=== PATIENT | female | born 1960 | race Caucasian/White ===

== ENCOUNTER 2017-01-30 12:39 | Emergency (ER) | payer BC ==
[2017-01-30] MEDS ORDERED: methylPREDNISolone 125 MG* 2 ML VIAL IM ONE (13:26)
--- NOTE | 2017-02-14 08:42 | UC ---
Dina Valdez Thomas, scribed for Sue Canada DO on 01/30/17 at 1327 . Allergic Reaction HPI - HPI Summary HPI Summary: The pt is a 56 y/o F presenting to [facility] c/o hives to her left forearm that began today at 11:40. She also has minor tingling to her lips. Before the allergic reaction, she was eating lunch and eating foods that she normally eats. Pt denies using new soaps, lotions detergents, and skin care products. 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 Pt denies dizziness, lightheadedness, confusion, throat swelling, near -syncope, CP, SOB, N/V, abd pain, diarrhea, and cramping. - History of Current Complaint Chief Complaint: UCAllergicReaction Stated Complaint: ALLERGIC REACTION/HIVES Time Seen by Provider: 01/30/17 13:14 Hx Obtained From: Patient Onset/Duration: Lasting Minutes - today at 14:40, Still Present Severity Currently: Mild Pain Intensity: 0 Pain Scale Used: 0-10 Numeric Aggravating Factor(s): Nothing Alleviating Factor(s): Other - Benadryl Associated Signs And Symptoms: Negative: Abdominal Pain, Chest Pain, Difficulty Breathing, Hoarseness, Lightheadedness, Nausea, Throat Tightening, Vomiting, Other: - dizziness, confusion, near-syncope, diarrhea, cramping - Allergies/Home Medications Allergies/Adverse Reactions: Allergies Allergy/AdvReac Type Severity Reaction Status Date / Time No Known Allergies Allergy Verified 01/30/17 13:08 Home Medications: Home Medications Metoprolol Tartrate TAB* [Lopressor TAB*] 100 mg PO BID 01/30/17 [History Confirmed 01/30/17] Multiple Vitamins W/ Minerals [Multivitamin Adults] 1 tab PO DAILY 01/30/17 [ History Confirmed 01/30/17] PMH/Surg Hx/FS Hx/Imm Hx Previously Healthy: No Cardiovascular History: Cardiac Disease Other Cardiovascular History: [place] Respiratory History: Asthma - Surgical History Surgical History: Yes Surgery Procedure, Year, and Place: 4 C-SECTIONS, CARDIAC BYPASS, CARDIAC STENTS X3 AT [facility] 05/21/11 (PROMUS ELEMENT PLUS STENTS) , TONSILS A TEENAGER - Family History Known Family History: Positive: Cardiac Disease, Hypertension, Diabetes Family History: CAD - Social History Alcohol Use: None Substance Use Type: None Smoking Status (MU): Former Smoker Type: Cigarettes Have You Smoked in the Last Year: Yes Household Exposure Type: Cigarettes - Immunization History Most Recent Influenza Vaccination: 02/07 Most Recent Tetanus Shot: up to date Most Recent Pneumonia Vaccination: never had Review of Systems Skin: Other - Hives to left forearm ENT: Other - Tingling to lips Is Patient Immunocompromised?: No All Other Systems Reviewed And Are Negative: Yes Physical Exam Triage Information Reviewed: Yes Appearance: Well-Appearing, No Pain Distress, Well-Nourished Vital Signs: Initial Vital Signs Temp 97.9 F 01/30/17 13:04 Vital Signs Reviewed: Yes Eyes: Positive: Conjunctiva Clear. Negative: Discharge ENT: Positive: TMs normal, Other - There is no obvious swelling of the lips and tongue.. Negative: Tonsillar swelling, Tonsillar exudate, Trismus, Muffled voice Neck exam: Normal Neck: Positive: Supple Respiratory: Positive: Lungs clear, Normal breath sounds, No respiratory distress, No accessory muscle use Cardiovascular: Positive: RRR, No Murmur Abdomen Description: Positive: Nontender, Soft Bowel Sounds: Positive: Present Musculoskeletal Exam: Normal Neurological: Positive: Alert, Muscle Tone Normal Psychological Exam: Normal Psychological: Positive: Age Appropriate Behavior Skin Exam: Normal Skin: Positive: Other - Warm, dry, normal color. There is a urticarial rash 15 cm x 8 cm on the left forearm. Allergic Reaction Course/Dx - Course Course Of Treatment: Medications reviewed this visit. - Differential Dx/Diagnosis Provider Diagnoses: allergic reaction Discharge - Discharge Plan Condition: Stable Disposition: HOME Prescriptions: Cetirizine* [ZyrTEC 10 MG TAB*] 10 mg PO DAILY #7 tab predniSONE TAB* [Deltasone TAB*] 40 mg PO DAILY #8 tab Patient Education Materials: Cetirizine (By mouth), Urticaria (ED), General Allergic Reaction (ED) Referrals: Aletha Borrego MD [Primary Care Provider] - Additional Instructions: CORTICOSTEROID MEDICATION: You have been given a medicine of the cortisone class. This medication is used to control inflammation or allergy. It is usually only given for a short period of time, until the acute process subsides. There are usually no side effects from short-term use of cortisone-like medications. Some persons feel an increased sense of well-being and are not sleepy at bedtime. Long-term use of cortisone medications is best avoided, unless required for a severe condition. If your condition does not remit, or relapses after the course of corticosteroid medication, you should consult your physician. Contact the physician if you develop lightheadedness, black or tarry stools , swelling of the legs, or significant rapid change in weight. The documentation as recorded by the Dina avitia Thomas accurately reflects the service I personally performed and the decisions made by , Sue Canada DO.
== END 2017-01-30 14:20 | disposition home or self-care (01) ==
LOC: UCEAST 12:39
DX: T78.40XA Allergy, unspecified, initial encounter (principal); X58.XXXA Exposure to other specified factors, initial encounter; L50.9 Urticaria, unspecified; I25.2 Old myocardial infarction; Z95.5 Presence of coronary angioplasty implant and graft; J45.909 Unspecified asthma, uncomplicated; Z87.891 Personal history of nicotine dependence
CPT/HCPCS: 96372; 99211; G0463; J2930

== ENCOUNTER 2017-05-28 15:43 | Observation (INO) | payer BC ==
--- OUTSIDE RECORDS SUMMARY | 2017-05-28 15:58 | XMS REPORT ---
:1960 External Reference #:[id number] Author Organization [facility] Address [address] [address] Phone [phone] Care Team Providers Name Role Phone Aletha Borrego MD Primary Care Physician Unavailable Payers Type Date Identification Numbers Payment Provider Subscriber Commercial Effective: Policy Number: [id number] [facility] Melba Wellingtonong 2007 Group Number: [id number] [address] PayID: [id number] [place] [address] Problems Date Description Provider Status Onset: 06/14/2015 Essential hypertension Rafal Truong M.D., [facility], Active [facility] Onset: 06/14/2015 Hyperlipidemia Rafal Truong M.D., [facility], Active [facility] Onset: 06/14/2015 Chronic ischemic heart disease, Rafal Truong M.D., [facility], Active unspecified [facility] Onset: 08/31/2015 Paroxysmal ventricular Rafal Truong M.D., [facility], Active tachycardia [facility] Onset: 11/30/2015 Edema Rafal Truong M.D., [facility], Active [facility] Onset: 11/30/2015 Premature beats Rafal Truong M.D., [facility], Active [facility] Onset: 05/29/2016 Athscl heart disease of [place] Rafal Truong M.D., [facility], Active coronary artery w/o ang pctrs [facility] Family History Date Family Member(s) Problem(s) Comments General Heart Disease General Diabetes Social History Type Date Description Comments Marital Status Occupation Currently 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 Quit 06/06/15. ETOH Use Denies alcohol use Smoking Patient is a former smoker Recreational Drug Use Denies Drug Use Daily Caffeine Consumes on average 2 cups of regular coffee per day Exercise Type/Frequency Exercises regularly walking at work Allergies, Adverse Reactions, Alerts Date Description Reaction Status Severity Comments 06/14/2015 NKDA active Medications Medication Date Status Form Strength Qnty SIG Indications Ordering Provider Brilinta 05/29/ Active Tablets 60mg 60tabs 1 tab by Rafal 2017 mouth Stefek, twice a M.D., day [facility], [facility] Nitrostat 09/13/ Active Tablets 0.4mg 25tabs one sl Rafal 2015 Sub q5min up Stefek, to 3 M.D., doses as [facility], needed [facility] Metoprolol 09/10/ Active Tablets 100mg 180tab 1 by Rafal Tartrate 2015 s mouth Stefek, twice a M.D., day [facility], [facility] Amlodipine 06/13/ Active Tablets 2.5mg 30tabs 1 by Jj Lyles Besylate 2016 mouth Stefek, every day M.D., [facility], [facility] Aspirin / Active Tablets 81mg 1 by Unknown 0000 mouth every day Furosemide / Active Tablets 20mg 90tabs 1 by Rafal 0000 mouth Stefek, every M.D., morning [facility], [facility] Atorvastatin / Active Tablets 80mg 90tabs 1 by Rafal Calcium 0000 mouth Stefek, every day M.D., [facility], [facility] Multivitamins / Active Capsules 1 by Unknown 0000 mouth every day Metoprolol / Hx Tablets 50mg 2 tabs po Unknown Tartrate 0000 - qAM and 1 09/10/ tab qPM 2015 Lisinopril / Hx Tablets 5mg 1 by Unknown 0000 - mouth 06/24/ every day 2015 Brilinta / Hx Tablets 90mg 1 tab by Unknown 0000 - mouth 05/29/ twice a 2016 day Vital Signs Date Vital Result Comment 05/28/2017 Height 63 inches 5'3" Weight 214.25 lb w/o shoes Heart Rate 130 /min BP Systolic Sitting 134 mmHg LA lg cuff BP Diastolic Sitting 82 mmHg LA lg cuff BP Systolic Standing 114 mmHg LA lg cuff BP Diastolic Standing 70 mmHg LA lg cuff BMI (Body Mass Index) 37.9 kg/m2 Ejection Fraction 50-55% Echo 11/24/15 05/29/2016 Height 63 inches 5'3" Weight 217.00 lb w/ shoes Heart Rate 76 /min reg BP Systolic Sitting 114 mmHg Lue lg cuff BP Diastolic Sitting 70 mmHg Lue lg cuff BP Systolic Standing 112 mmHg Lue BP Diastolic Standing 70 mmHg Lue Respiratory Rate 16 /min BMI (Body Mass Index) 38.4 kg/m2 Ejection Fraction 50-55% as of 11/24/15 echo 11/30/2015 Height 63 inches 5'3" Weight 218.00 lb Heart Rate 62 /min 64 BP Systolic Sitting 122 mmHg right arm, large cuff BP Diastolic Sitting 80 mmHg right arm, large cuff BP Systolic Standing 118 mmHg right arm, reg cuff BP Diastolic Standing 80 mmHg right arm, reg cuff Respiratory Rate 16 /min BMI (Body Mass Index) 38.6 kg/m2 Ejection Fraction 50-55% 11/24/15 09/26/2015 Heart Rate 66 /min 68 BP Systolic Sitting 114 mmHg right arm, large cuff BP Diastolic Sitting 82 mmHg right arm, large cuff BP Systolic Standing 114 mmHg right arm, large cuff BP Diastolic Standing 82 mmHg right arm, large cuff 09/11/2015 Heart Rate 88 /min 90 BP Systolic Sitting 132 mmHg left arm, large cuff BP Diastolic Sitting 78 mmHg left arm, large cuff BP Systolic Standing 124 mmHg left arm, large cuff BP Diastolic Standing 76 mmHg left arm, large cuff Respiratory Rate 16 /min 08/31/2015 Height 63 inches 5'3" Weight 208.00 lb Heart Rate 78 /min 84 BP Systolic Sitting 160 mmHg right arm, large cuff BP Diastolic Sitting 96 mmHg right arm, large cuff BP Systolic Standing 148 mmHg right arm, large cuff BP Diastolic Standing 96 mmHg right arm, large cuff Respiratory Rate 16 /min BMI (Body Mass Index) 36.8 kg/m2 Ejection Fraction 45-50% 06/08/15 07/26/2015 Height 63 inches 5'3" Weight 207.00 lb Heart Rate 78 /min 84 BP Systolic Sitting 120 mmHg right arm, large cuff BP Diastolic Sitting 78 mmHg right arm, large cuff BP Systolic Standing 112 mmHg right arm, large cuff BP Diastolic Standing 74 mmHg right arm, large cuff Respiratory Rate 16 /min BMI (Body Mass Index) 36.7 kg/m2 Ejection Fraction 45-50% 06/08/15 06/26/2015 Heart Rate 74 /min 88 BP Systolic Sitting 128 mmHg left arm, large cuff BP Diastolic Sitting 72 mmHg left arm, large cuff BP Systolic Standing 112 mmHg left arm, large cuff BP Diastolic Standing 66 mmHg left arm, large cuff Respiratory Rate 16 /min 06/14/2015 Height 63 inches 5'3" Weight 199.38 lb w/o shoes Heart Rate 80 /min reg BP Systolic Sitting 90 mmHg Lue, lg cuff BP Diastolic Sitting 60 mmHg Lue, lg cuff BP Systolic Standing 92 mmHg Lue BP Diastolic Standing 60 mmHg Lue Respiratory Rate 18 /min BMI (Body Mass Index) 35.3 kg/m2 Ejection Fraction 45-50% As of 06/08/15 echo Results Test Date Test Result H/L Range Note Basic Metabolic Panel 11/30/2015 Sodium 136 mmol/L 133-145 Potassium 4.0 mmol/L 3.5-5.0 Chloride 104 mmol/L 101-111 Co2 Carbon Dioxide 23 mmol/L 22-32 Anion Gap 9 mmol/L 2-11 Glucose 111 mg/dL High 70-100 Blood Urea Nitrogen 16 mg/dL 6-24 Creatinine 0.83 mg/dL 0.51-0.95 BUN/Creatinine Ratio 19.3 8-20 Calcium 9.6 mg/dL 8.6-10.3 Egfr Non- 71.9 >60 Egfr 92.5 >60 1 Laboratory test finding 11/30/2015 Magnesium 2.0 mg/dL 1.9-2.7 Laboratory test finding 08/01/2015 Magnesium 2.0 mg/dL 1.9-2.7 2 Basic Metabolic Panel 08/01/2015 Sodium 136 mmol/L 133-145 2 Potassium 4.0 mmol/L 3.5-5.0 2 Chloride 104 mmol/L 101-111 2 Co2 Carbon Dioxide 23 mmol/L 22-32 2 Anion Gap 9 mmol/L 2-11 2 Glucose 98 mg/dL 70-100 2 Blood Urea Nitrogen 14 mg/dL 6-24 2 Creatinine 0.77 mg/dL 0.51-0.95 2 BUN/Creatinine Ratio 18.2 8-20 2 Calcium 9.5 mg/dL 8.6-10.3 2 Egfr Non- 78.7 >60 2 Egfr 101.2 >60 2, 3 Lipid Panel 08/01/2015 Triglycerides 192 mg/dL 2, 4 Cholesterol 146 mg/dL 2, 5 HDL Cholesterol 40.7 mg/dL 2, 6 LDL Cholesterol 67 mg/dL 2, 7 Laboratory test finding 08/01/2015 Alt (SGPT) 37 U/L 7-52 2, 8 Ast (Sgot) 26 U/L 13-39 2, 9 1 Because ethnic data is not always readily available, this report includes an eGFR for both -Americans and non- Americans. The National Kidney Disease Education Program (NKDEP) does not endorse the use of the MDRD equation for patients that are not between the ages of 18 and 70, are , have extremes of body size, muscle mass, or nutritional status, or are non- or non-. According to the National Kidney Foundation, irrespective of diagnosis, the stage of the disease is based on the level of kidney function: Stage Description GFR(mL/min/1.73 m(2)) 1 Kidney damage with normal or decreased GFR 90 2 Kidney damage with mild decrease in GFR 60-89 3 Moderate decrease in GFR 30-59 4 Severe decrease in GFR 15-29 5 Kidney failure <15 (or dialysis) 2 PT IS FASTING 3 Because ethnic data is not always readily available, this report includes an eGFR for both -Americans and non- Americans. The National Kidney Disease Education Program (NKDEP) does not endorse the use of the MDRD equation for patients that are not between the ages of 18 and 70, are , have extremes of body size, muscle mass, or nutritional status, or are non- or non-. According to the National Kidney Foundation, irrespective of diagnosis, the stage of the disease is based on the level of kidney function: Stage Description GFR(mL/min/1.73 m(2)) 1 Kidney damage with normal or decreased GFR 90 2 Kidney damage with mild decrease in GFR 60-89 3 Moderate decrease in GFR 30-59 4 Severe decrease in GFR 15-29 5 Kidney failure <15 (or dialysis) 4 Desirable <150 Borderline high 150-199 High 200-499 Very High >500 5 Desirable <200 Borderline high 200-239 High >239 6 Low <40 Desirable: 40-60 High: >60 7 Desirable: <100 mg/dL Near Optimal: 100-129 mg/dL Borderline High: 130-159 mg/dL High: 160-189 mg/dL Very High: >189 mg/dL 8 PT IS FASTING 9 PT IS FASTING Procedures Date CPT Code Description Status 05/28/2017 64811 EKG Tracing & Interpretation Completed 09/30/2016 52190 Holter Monitor Review (24 hr)dr guadarramaamp; jose Completed only 09/26/2016 97516 Holter Monitor Review (24 hr)dr porter ho; jose Completed only 05/29/2016 01871 EKG Tracing & Interpretation Completed 01/24/2016 89035 Holter Monitor Review (24 hr)dr porter garcia Completed only 01/23/2016 43261 EKG, Interpretation Only Completed 01/20/2016 22345 EKG, Interpretation Only Completed 01/19/2016 70131 EKG, Interpretation Only Completed 01/18/2016 88029 EKG, Interpretation Only Completed 01/17/2016 12777 EKG, Interpretation Only Completed 01/16/2016 03465 EKG, Interpretation Only Completed 01/15/2016 46360 EKG, Interpretation Only Completed 11/30/2015 65899 EKG Tracing & Interpretation Completed 11/24/2015 56597 ECHO Transthoracic, Real-Time 2D With Doppler And Color Completed Flow 08/24/2015 28412 Holter Monitor Review (24 hr)dr porter ho; jose Completed only 08/22/2015 61860 ECG Monitor/Recording W/Visual Superimposition Scanning Completed 08/01/2015 78605 Treadmill Interp/Report Only Completed 08/01/2015 78875 Stress Test Supervsn W/Out I/R Completed 06/14/2015 58173 EKG Tracing & Interpretation Completed 06/09/2015 43952 EKG, Interpretation Only Completed 06/08/2015 79435 ECHO Transthorasic Realtime 2D W Doppler & Color Completed Flow Hosp 06/07/2015 36952 EKG, Interpretation Only Completed 06/06/2015 60295 Coronary Angiography With Left Heart Catheterization Completed 06/06/2015 95367 Revascularization Acute Total/Subtotal Occlusion Completed Encounters Type Date Location Provider CPT E/M Dx Office Visit 05/29/2016 [facility] Mark Truong M.D., 10501 I25.10 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[facility], [facility] I49.3 E78.5 Office Visit 01/23/2016 3:11p [facility], [address] R55 Assoc,pc [place] Hospitalists I49.8 I25.10 I10 Office Visit 01/22/2016 1:24p [facility] Allen Vargas, 38537 R55 Abdulaziz I47.2 I25.10 Office Visit 01/22/2016 3:10p [facility], 33939 R55 Assoc,pc [place] Hospitalists I49.8 I25.10 I10 Office Visit 01/20/2016 12:17p [facility] Mark Truong M.D., 33502 I47.2 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[facility], [facility] I25.10 Office Visit 01/19/2016 12:16p [facility] Mark Truong M.D., 11085 I47.2 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[facility], [facility] I25.2 I25.10 Office Visit 01/18/2016 12:15p [facility] Mark Truong M.D., 92766 I47.2 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[facility], [facility] I25.10 I25.2 Office Visit 01/17/2016 12:13p [facility] Mark Truong M.D., 56231 I25.10 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[facility], [facility] I47.2 I25.2 Office Visit 01/16/2016 12:12p [facility] Mark Truong M.D., 04163 I25.10 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[facility], [facility] I47.2 I25.2 Office Visit 01/15/2016 9:00a [facility] Mark Truong M.D., 91731 I25.10 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[facility], [facility] I47.2 I25.2 Office Visit 11/30/2015 9:20a [facility] Mark Truong M.D., 08108 R60.9 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[facility], [facility] I25.810 I47.2 I49.3 Office Visit 09/26/2015 8:30a [facility] [place] [id number] I10 At [facility] Office Visit 09/11/2015 8:30a [facility] [place] [id number] I10 At [facility] Office Visit 08/31/2015 9:00a [facility] Rafal Truong M.D., 94812 I47.2 At [facility], [facility] I25.9 E78.5 I10 I25.10 I25.2 Office Visit 07/26/2015 9:20a [facility] Rafal Truong M.D., 00267 I25.9 [facility], [facility] E78.5 I10 Office Visit 06/26/2015 2:30p [facility] [place] [id number] I10 At [facility] Office Visit 06/14/2015 1:40p [facility] Rafal Truong M.D., 18241 I25.9 At [facility], [facility] I10 E78.5 Office Visit 06/09/2015 3:07p [facility] Mark Truong M.D., 87748 I21.11 [facility], [facility] Office Visit 06/07/2015 3:54p [facility] Mark Truong M.D., 15743 I21.11 [facility], [facility] Plan of Care 05/28/2017 - Rafal Truong M.D., [facility], NDOIXC80.0 Tachycardia, unspecifiedComments:You currently are in a rapid heart rhythm that according to your history is been there probably since Friday. This needs further acute evaluation.Recommendations:I recommend that he go to the emergency room now for further assessment of this in order to figure out the cause.
[2017-05-28] MEDS ORDERED: NS 0.9% 1000 ML* 1,000 ML IV ONE (16:03)
[2017-05-28 16:30] LABS: ABS Basophils 0.1 10^3/ul (0-0.2); ABS Eosinophils 0.1 10^3/ul (0-0.6); ABS Lymphocytes 3.3 10^3/ul (1.0-4.8); ABS Monocytes 0.7 10^3/ul (0-0.8); ABS Neutrophils 6.3 10^3/ul (1.5-7.7); ABS Nucleated RBC 0 10^3/ul; Eosinophil % 1.1 % (0-6); Hematocrit 43 % (35-47); Hemoglobin 15.1 g/dl (12.0-16.0); Lymphocyte % 31.5 % (25-47); Mean Corpuscular HGB Conc 36 g/dl (31-36); Mean Corpuscular Hemoglobin 32 pg (27-31); Mean Corpuscular Volume 90 fL (80-97); Mean Platelet Volume 8 um3 (7.4-10.4); Nucleated Red Blood Cells % 0; Platelet Count 289 10^3/ul (150-450); Red Blood Count 4.75 10^6/ul (4.0-5.4); Red Cell Distribution Width 13 % (10.5-15); White Blood Count 10.5 10^3/ul (3.5-10.8)
[2017-05-28 16:39] LABS: INR 0.84 (0.77-1.02)
[2017-05-28 16:47] LABS: EGFR Non-African American 63.6 (>60)
[2017-05-28] MEDS ORDERED: Perflutren Lipid Microsphere* 3 ML VIAL ONE (16:58)
--- NOTE | 2017-05-28 18:02 | RAD ---
Indication: Palpitations. Single frontal view of the chest performed at 1740 hours was reviewed. Comparison is made with previous exam dated June 06, 2015. No mediastinal shift is noted. Heart is of normal size and configuration. Lung bunch appear clear. IMPRESSION: NO ACTIVE CARDIOPULMONARY DISEASE IS NOTED.
--- NOTE | 2017-05-28 18:11 | ECHO ---
Patient: [facility] Rec#: [id number] : 1960 Date: 05/28/2017 Age: 56y Height: 165.1 cm / 65.0 in Weight: 96.6 kg / 212.9 lbs Sex: F BSA: 2 Room#: ED 5 Admit Date#: 05/28/2017 Type: Inpatient Referring: Gume Macias Reading: Aria Naranjo MD Tobacco Farmworker: Luz Julio RN RDCS CC: Aletha Borrego MD CC: Rafal Truong MD Transthoracic Echocardiogram Indication: Persistent tachycardia BP: 128/68 HR: 114 Rhythm: Tachycardia Findings History: CAD, STEMI, PCI, CABG, HTN, obesity, former smoker Technical Comments: The study is technically limited due to patient body habitus. The study is technically limited due to the patient's smoking history. Completed at 1750. Left Ventricle: The left ventricular chamber size is normal. Mild to moderate concentric left ventricular hypertrophy is observed. Global left ventricular wall motion and contractility are within normal limits. The left ventricle appears hyperdynamic. The estimated ejection fraction is greater than 65%. The assessment of diastolic function is non-diagnostic. Left Atrium: The left atrial chamber size is normal. Right Ventricle: The right ventricle is not well visualized. The right ventricular cavity size is normal. The right ventricular global systolic function is low normal. Right Atrium: The right atrial cavity size is normal. Aortic Valve: The aortic valve is trileaflet. The aortic valve leaflets are mildly thickened. There is no evidence of aortic regurgitation. There is no evidence of aortic stenosis. Mitral Valve: The mitral valve leaflets are mildly thickened. There is no evidence of mitral regurgitation. There is no evidence of mitral stenosis. Tricuspid Valve: The tricuspid valve leaflets are normal. There is trace tricuspid regurgitation. Unable to estimate the right ventricular systolic pressure. There is no tricuspid stenosis. Pulmonic Valve: The pulmonic valve appears normal. There is trace to mild pulmonic regurgitation. Pericardium: There is no significant pericardial effusion. A pericardial fat pad is visualized. Aorta: There is no dilatation of the ascending aorta. The aortic arch is not well visualized. There is no dilation of the aortic root. Pulmonary Artery: The main pulmonary artery appears normal. Venous: The venous system is not well visualized. The inferior vena cava is not visualized. Contrast: Definity was used to optimize study. A total of 4 ml of diluted Definity was given IV. Conclusions Mild to moderate concentric left ventricular hypertrophy is observed. The left ventricle appears hyperdynamic with no gross wall motion abnormalities identified. The estimated ejection fraction is greater than 65%. The right ventricular global systolic function is low normal. The mitral valve leaflets are mildly thickened with normal excursion. The aortic valve leaflets are mildly thickened with good function. There is trace tricuspid regurgitation. Compared with prior echo a [facility] of 06/07/16, prior hypokinesis of the anterior and lateral wall no longer noted, EF has increased from 45-50%, RV function is stable, valvular function is stable. Measurements Name Value Normal Range RVDdMajor (2D) 3.3 cm (2.2 - 4.4) RAd ISD 4CH 4.7 cm (3.4 - 4.9) RA (A4C)W 3.4 cm (2.9 - 4.6) IVSd (2D) 1.5 cm (0.6 - 1) LVPWd (2D) 1.2 cm (0.6 - 1) LVIDd (2D) 3.8 cm (3.6 - 5.4) LVIDs (2D) 2.3 cm - LV FS (2D) 38 % (25 - 45) Aortic Annulus 1.9 cm (1.4 - 2.6) Ao root diameter (2D) 2.8 cm (2.1 - 3.5) Ascending Ao 2.8 cm (2.1 - 3.4) LA dimension (AP) 2D 3 cm (2.3 - 3.8) LAd ISD 4CH 4.7 cm (2.9 - 5.3) LA ISD 4CH W 3.2 cm (2.5 - 4.5) Name Value Normal Range LA ESV SP 4CH (A/L) 31 ml - LA ESV SP 2CH (A/L) 26 ml - LA ESV BP (A/L) 30 ml - LA ESV BP (A/L) index 15 ml/m2 - LA ESV SP 4CH (MOD) 29 ml - LA ESV SP 2CH (MOD) 26 ml - Name Value Normal Range MV E-wave Vmax 0.53 m/sec - MV A-wave Vmax 0.8 m/sec - MV E:A ratio 0.66 ratio - LV lateral e' Vmax 0.07 m/sec - LV E:e' lateral ratio 7.6 ratio - Name Value Normal Range AV Vmax 1.2 m/sec - AV VTI 16.6 cm - AV peak gradient 5.4 mmHg - AV mean gradient 2.6 mmHg - LVOT Vmax 1 m/sec - LVOT VTI 16.6 cm - LVOT peak gradient 4.3 mmHg - LVOT mean gradient 2.3 mmHg - Name Value Normal Range PV Vmax 0.96 m/sec -
[2017-05-28] MEDS ORDERED: Potassium Chlor TAB* 20 MEQ TAB.ER PO ONE ×2 (18:25→22:30)
[2017-05-28] MEDS ORDERED: Diltiazem IV* 5 MG/ML 5 ML VIAL (for loading dose/IV Push) (25 MG) IV SLOW PU ONE (18:30)
[2017-05-28] MEDS: KCL 10 MEQ/50 ML IVPREMIX* 10 MEQ/50 ML BAG IV SCH ×2 (18:53→22:53)
[2017-05-28 19:17] LABS: Urine Appearance Clear; Urine Blood 2+ (Negative); Urine Color Yellow; Urine Ketones Negative (Negative); Urine Protein Negative (Negative); Urine Urobilinogen Negative (Negative)
[2017-05-28] MEDS ORDERED: Al Hydrox/Mg Hydrox/Simet LIQ* 30 ML UDC PO PRN (21:01)
[2017-05-28] MEDS ORDERED: Acetaminophen TAB* 325 MG PO PRN (21:01)
[2017-05-28] MEDS ORDERED: Ondansetron INJ* 2 MG/ML VIAL IV PRN (21:01)
[2017-05-28] MEDS ORDERED: Atorvastatin* 80 MG TAB PO SCH (21:10)
[2017-05-28] MEDS ORDERED: NS 0.9% 1000 ML* 1,000 ML IV SCH (21:15)
[2017-05-28] MEDS ORDERED: Ticagrelor* 90 MG TAB PO SCH (22:00)
[2017-05-28] MEDS: Metoprolol Tartrate TAB* 50 mg PO SCH (22:51)
[2017-05-29] MEDS: Ticagrelor* 90 MG TAB PO SCH ×2 (00:16→08:51)
--- NOTE | 2017-05-29 01:55 | HP ---
CC: Dr. Borrego * HISTORY AND PHYSICAL: DATE OF ADMISSION: 05/28/17 PROVIDER: Christianne Casiano NP PRIMARY CARE PROVIDER: Dr. Borrego. ATTENDING PHYSICIAN WHILE IN THE HOSPITAL: Dr. Rima Klein * (report dictated by Christianne Casiano NP). CHIEF COMPLAINT: Tachycardia/palpitations. HISTORY OF PRESENT ILLNESS: Ms. Lorenzo is a 56-year-old female, who carries a past medical history of myocardial infarction x2, arterial bypass, hypertension , high cholesterol, cardiac catheterizations with 3 stent placements, who was brought to the Emergency room by her donation worker, Dr. Truong, for further evaluation of her tachycardia. The patient states that she went to Dr. Truong' s office today for her annual cardiology followup and was found to be in sinus tachycardia at a rate of 130. He was concerned, so he sent her to the emergency room for further evaluation. The patient reports that she has been having palpitations since Friday. States that she initially thought the palpitations could be related to her increased level of stress. She denies any fever. Denies any anorexia. Denies chest pain. Denies any cough, congestion, or shortness of breath. Denies any nausea, vomiting, or abdominal pain. Denies any gross hematuria or dysuria. Denies any other symptoms. We were asked to evaluate her by the emergency room physician for admission due to her tachycardia and hypokalemia. PAST MEDICAL HISTORY: Significant for: 1. Hypertension. 2. Hypercholesterolemia. 3. Arterial bypass. 4. MD x2. PAST SURGICAL HISTORY: 1. Cardiac catheterization with stent placement. 2. Arterial bypass. 3. Tonsillectomy. 4. Four C-sections. CURRENT MEDICATIONS: 1. Metoprolol 100 mg p.o. b.i.d. 2. Brilinta 60 mg p.o. b.i.d. 3. Amlodipine 2.5 mg p.o. daily. 4. Lipitor 80 mg p.o. daily. 5. Potassium. 6. Lasix 20 mg p.o. daily. 7. Multivitamin. 8. Aspirin 81 mg p.o. daily. ALLERGIES TO MEDICATIONS: No known drug allergies. FAMILY HISTORY: Father with an MD in his 50s and had subsequent heart attacks and MD at age 76, which he from. Mother with diabetes, mother with liver cancer. SOCIAL HISTORY: She is a former smoker. She quit smoking 2 years ago. Prior to that, she smoked for 30 years half a pack to 1 pack to 2 packs per day. She denies any alcohol or illicit drug use. Surrogate decision maker in the event she is unable to make her own decisions is her , Derrell Lorenzo. His phone number is [phone]. REVIEW OF SYSTEMS: There was no documented fever, no significant weight change. There is no double vision. No ear discharge, no rhinorrhea. There is no sore throat. She denies any chest pain or edema. Denies any cough, hemoptysis, or shortness of breath. Denies nausea, vomiting, or diarrhea. Denies any abdominal pain. Denies any gross hematuria or dysuria. Denies any focal weakness or sensory losses. Denies any visual complaints. Denies any dysphagia. Denies any arthralgias or myalgias. Denies any rashes or lesions. Denies any psychosis or anxiety. She does report that she has had some palpitations since Friday. PHYSICAL EXAMINATION GENERAL: At this time, Ms. Lorenzo is a 56-year-old female. She is resting on the stretcher. She does not appear to be in any acute distress. VITAL SIGNS: Temperature was 99.2, heart rate was 102, respirations were 18, O2 saturation was 98% on room air, blood pressure was 125/56. HEENT: Head is atraumatic, normocephalic. Eyes: EOMs are intact. Sclerae anicteric. Not pale. Oral mucosa appears to be moist. NECK: Supple. LUNGS: Clear to auscultation bilaterally. No wheezes, rales, or rhonchi. CARDIAC: S1, S2. Regular rate and rhythm. No murmurs, rubs, or gallops. She is tachycardic on the monitor, in sinus. ABDOMEN: Soft, nontender. Bowel sounds are present x4. EXTREMITIES: Pulses are +2 throughout. She is able to move all extremities with 5/5 strength. NEUROLOGIC: She is awake, alert, and oriented x3. Tongue is midline. Speech is clear. No focal deficits are noted. SKIN: Intact. DIAGNOSTIC STUDIES/LAB DATA: WBCs were 10.5, RBCs 4.75, hemoglobin 15.1, hematocrit was 43, platelet count was 289. INR was 0.84. D-dimer was less than 200. Sodium was 137, potassium 2.6, chloride was 97, carbon dioxide was 31 , anion gap was 9, glucose was 181, lactic acid was 2.0, calcium was 10.2. ASTs were 36, ALTs were 47. BNP was 26. TSH was 1.99. Chest x-ray: No active cardiopulmonary disease was noted on the chest x-ray. Transthoracic echocardiogram, conclusion: [id number] concentric left ventricular hypertrophy is observed. Left ventricle appears hyperdynamic. No gross wall motion abnormality is identified. Ejection fraction is greater than 65%. Right ventricular global systolic function is low normal. Mitral valve leaflets are mildly thickened with normal excursion. Aortic valve leaflets are mildly thickened with good function. There is trace tricuspid regurgitation compared [place] [facility] [place]. Prior hypokinesis of the anterior and lateral wall is no longer noted. EF has increased from 45% to 50% to 65%. RV function is stable. Valvular function is stable. ASSESSMENT AND PLAN: Ms. Lorenzo is a 56-year-old female that presented to the emergency room from Dr. Truong's office for further evaluation of sinus tachycardia. While in the emergency room, she had routine lab work drawn and was found to be hypokalemic with a potassium level of 2.6. We were asked to evaluate her for tachycardia and hypokalemia. She will be admitted under observation for: 1. Tachycardia: The patient currently denies any shortness of breath or chest pain. Her D-dimer was negative. I feel that she does not need further workup for pulmonary embolism as her D-dimer is negative and she has never complained of chest pain or shortness of breath. We will continue her metoprolol 100 mg p.o. b.i.d. for rate control. Make medications adjustments as needed for rate control. Her heart rate has improved and is now 100. 2. Hypokalemia: Her initial potassium level is 2.6. She received 40 mEq of potassium in the ER p.o. and [address] her on IV fluids at 100 cc per hour. We will recheck a potassium level at midnight and again in the a.m. I will give her a second dose of 40 mEq of potassium p.o. at 10:30 this evening. 3. Hypertension: We will continue her on her amlodipine 2.5 and metoprolol. Her blood pressure is stable at this time. 4. Status post stent placement: We will continue her on Brilinta 60 mg p.o. b.i.d. and aspirin 81 mg p.o. daily. 5. High cholesterol: We will continue her on Lipitor 80 mg p.o. daily. 6. FEN: We will place her on a heart-healthy, decaf-okay diet. 7. DVT prophylaxis: We will place her on SCDs. 8. Code status: She is a full code. TIME SPENT: Time spent on this admission was approximately 60 minutes. Greater than half that time was spent [id number] with the patient obtaining her history and physical and the other half of the time was spent going over her plan of care and implementing the plan of care. I have discussed this plan with my attending, Dr. Rima Klein, and she is in agreement with my plan. CHRISTIANNE CASIANO, BECKY [id number]/CPS #: [id number] CORRINE
[2017-05-29 05:45] LABS: ABS Basophils 0.1 10^3/ul (0-0.2); ABS Eosinophils 0.1 10^3/ul (0-0.6); ABS Lymphocytes 2.2 10^3/ul (1.0-4.8); ABS Monocytes 0.5 10^3/ul (0-0.8); ABS Nucleated RBC 0 10^3/ul; Eosinophil % 1.8 % (0-6); Hematocrit 38 % (35-47); Hemoglobin 13.1 g/dl (12.0-16.0); Lymphocyte % 31.5 % (25-47); Mean Corpuscular HGB Conc 34 g/dl (31-36); Mean Corpuscular Hemoglobin 31 pg (27-31); Mean Corpuscular Volume 92 fL (80-97); Mean Platelet Volume 8 um3 (7.4-10.4); Nucleated Red Blood Cells % 0; Platelet Count 232 10^3/ul (150-450); Red Blood Count 4.16 10^6/ul (4.0-5.4); Red Cell Distribution Width 13 % (10.5-15); White Blood Count 6.9 10^3/ul (3.5-10.8)
[2017-05-29 05:58] LABS: EGFR Non-African American 79.3 (>60)
--- NOTE | 2017-05-29 08:22 | ED ---
Nathanael Valdez Angela, scribed for Gume Macias MD on 05/28/17 at 1613 . Palpitations / Dysrhythmia - HPI Summary HPI Summary: This pt is a 56 y/o female presenting to [facility] referred by Dr. Truong c/o palpitations x3 days. Pt reports she has had palpitations, described as fast heart rate, for the past 3 days. She states her symptoms are aggravated with exertion. Pt additionally notes she has a headache. She denies chest pain, SOB, dizziness, lightheadedness, LE swelling, diarrhea, nausea, vomiting. Pt has hx of PVCs and tachycardia for which she had an ablation. Pt was put on metropolol. - History of Current Complaint Chief Complaint: EDDysrhythmPalp Time Seen by Provider: 05/28/17 15:59 Hx Obtained From: Patient Onset/Duration: Lasting Days, Still Present Timing: Constant Severity Currently: Moderate Character: Fast Aggravating: Exertion Alleviating: Nothing Associated Signs & Symptoms: Negative - Allergy/Home Medications Allergies/Adverse Reactions: Allergies Allergy/AdvReac Type Severity Reaction Status Date / Time No Known Allergies Allergy Verified 01/30/17 13:08 Home Medications: Home Medications Multivitamins/Minerals TAB* [Theragran/minerals TAB*] 1 tab PO DAILY 05/28/17 [ History Confirmed 05/28/17] Potassium Chlor TAB* [Klor Con ER TAB*] 10 meq PO DAILY 05/28/17 [History Confirmed 05/28/17] amLODIPine TAB* [Norvasc 5 mg TAB*] 2.5 mg PO DAILY 05/28/17 [History Confirmed 05/28/17] PMH/Surg Hx/FS Hx/Imm Hx Endocrine/Hematology History: Denies: Hx Diabetes - family Hx, Hx Thyroid Disease, Hx Anemia, Hx Unexplained Bleeding Cardiovascular History: Reports: Hx Angina, Hx Coronary Artery Disease, Hx Hypercholesterolemia, Hx Hypertension, Hx Myocardial Infarction Denies: Hx Aneurysm, Hx Angioplasty, Hx Auto Implanted Cardiovert Defib, Hx Cardiac Arrest, Hx Cardiomegaly, Hx Congenital Heart Disease, Hx Congestive Heart Failure, Hx Deep Vein Thrombosis, Hx Embolism, Hx Hypotension, Hx Pacemaker/ICD, Hx Peripheral Vascular Disease, Hx Rheumatic Fever, Hx Syncope, Hx Valvular Heart Disease, Other Cardiovascular Problems/Disorders Respiratory History: Reports: Hx Asthma - as a child, outgrown Denies: Hx Chronic Obstructive Pulmonary Disease (COPD) GI History: Denies: Hx Ulcer Sensory History: Reports: Hx Contacts or Glasses Denies: Hx Hearing Aid Opthamlomology History: Reports: Hx Contacts or Glasses Psychiatric History: Denies: Hx Panic Disorder - Surgical History Surgery Procedure, Year, and Place: 4 C-SECTIONS, CARDIAC BYPASS, CARDIAC STENTS X3 AT [facility] 05/21/11 (PROMUS ELEMENT PLUS STENTS) , TONSILS A TEENAGER Hx Anesthesia Reactions: No Infectious Disease History: No Infectious Disease History: Denies: Hx Hepatitis, Hx Human Immunodeficiency Virus (HIV), History Other Infectious Disease, Traveled Outside the [place] in Last 30 Days - Family History Known Family History: Positive: Cardiac Disease, Hypertension, Diabetes Family History: CAD - Social History Alcohol Use: None Hx Substance Use: No Substance Use Type: Reports: None Hx Tobacco Use: Yes Smoking Status (MU): Former Smoker Type: Cigarettes Have You Smoked in the Last Year: Yes Review of Systems Negative: Fever, Chills Positive: Palpitations. Negative: Chest Pain Negative: Shortness Of Breath Negative: Vomiting, Diarrhea, Nausea Negative: Edema - in LE Neurological: Other - NEG: dizziness, lightheadedness Positive: Headache All Other Systems Reviewed And Are Negative: Yes Physical Exam - Summary Physical Exam Summary: VITAL SIGNS: Reviewed. GENERAL: Patient is a well-developed and nourished female who is lying comfortable in the stretcher. Patient is not in any acute respiratory distress. HEAD AND FACE: No signs of trauma. No ecchymosis, hematomas or skull depressions. No sinus tenderness. EYES: PERRLA, EOMI x 2, No injected conjunctiva, no nystagmus. EARS: Hearing grossly intact. Ear canals and tympanic membranes are within normal limits. MOUTH: Oropharynx within normal limits. NECK: Supple, trachea is midline, no adenopathy, no JVD, no carotid bruit, no c- spine tenderness, neck with full ROM. CHEST: Symmetric, no tenderness at palpation LUNGS: Clear to auscultation bilaterally. No wheezing or crackles. CVS: Tachycardic rate and regular rhythm, S1 and S2 present, no murmurs or gallops appreciated. ABDOMEN: Soft, non-tender. No signs of distention. No rebound no guarding, and no masses palpated. Bowel sounds are normal. EXTREMITIES: FROM in all major joints, no edema, no cyanosis or clubbing. NEURO: Alert and oriented x 3. No acute neurological deficits. Speech is normal and follows commands. SKIN: Dry and warm Triage Information Reviewed: Yes Vital Signs On Initial Exam: Initial Vitals Temp Pulse Resp BP Pulse Ox 99.2 F 135 16 128/68 98 05/28/17 15:44 05/28/17 15:44 05/28/17 15:44 05/28/17 15:44 05/28/17 15:44 Vital Signs Reviewed: Yes Diagnostics - Vital Signs Vital Signs Temp Pulse Resp BP Pulse Ox 05/28/17 15:44 99.2 F 135 16 128/68 98 - Laboratory Result Diagrams: 05/28/17 16:19 05/28/17 16:19 Lab Statement: Any lab studies that have been ordered have been reviewed, and results considered in the medical decision making process. - Radiology Chest XR Xray Interpretation: No Acute Changes - IMPRESSION: No active cardiopulmonary disease is noted. Dr. Macias has reviewed this radiology report. Radiology Interpretation Completed By: Radiologist - EKG 16:05 Cardiac Rate: Tachycardia EKG Rhythm: Sinus Tachycardia - at 120 bpm EKG Interpretation: No ST elevations. - Additional Comments Diagnostic Additional Comments: Transthoracic Echocardiogram, as read by Dr. Aria Naranjo. Conclusion: Mild to moderate concentric left ventricular hypertrophy is observed. The left ventricle appears hyperdynamic with no gross wall motrion abnormalities identified. The estimated ejection fraction is greater than 65%. The right ventricular global systolic function is low normal. The mitral valve leaflets are mildly thickened with normal excursion. The aortic valve leaflets are mildly thickened with good function. There is trace tricuspid regurgitation. Compared with prior echo at [facility] [place]07[place], prior hypokinesis of the anterior and lateral wall no longer noted, EF has increased from 45-50%, RV function is stable, valvular function is stable. Dr. Macias has reviewed this report. Course/Dx - Course Assessment/Plan: This pt is a 56 y/o female presenting to [facility] referred by Dr. Truong c/o palpitations x3 days. Pt reports she has had palpitations, described as fast heart rate, for the past 3 days. She states her symptoms are aggravated with exertion. Pt additionally notes she has a headache. She denies chest pain, SOB, dizziness, lightheadedness, LE swelling, diarrhea, nausea, vomiting. Pt has hx of PVCs and tachycardia for which she had an ablation. Pt was put on metropolol. Test results without any significant abnormalities except for potassium of 2.6, glucose of 181. Chest XR: No active cardiopulmonary disease is noted. Echocardiogram shows mild to moderate concentric left ventricular hypertrophy is observed. The left ventricle appears hyperdynamic with no gross wall motrion abnormalities identified. The estimated ejection fraction is greater than 65%. The right ventricular global systolic function is low normal. The mitral valve leaflets are mildly thickened with normal excursion. The aortic valve leaflets are mildly thickened with good function. There is trace tricuspid regurgitation. Compared with prior echo at [facility] [place]07[place]16, prior hypokinesis of the anterior and lateral wall no longer noted, EF has increased from 45-50%, RV function is stable, valvular function is stable. In the ED course the pt was given IV and PO potassium chloride. I discussed the case with Dr. Phillips, hospitalist, who requested to give her Diltiazem to slow down the rate and admit the pt for further work up and management. Pt is hemodynamically stable, alert and oriented x3. - Diagnoses Provider Diagnoses: Persistent tachycardia, Hyperkalemia - Physician Notifications Discussed Care Of Patient With: Kingsley Phillips Time Discussed With Above Provider: 18:28 Instructed by Provider To: Other - I discussed pt care with Dr. Phillips, hospitalist, who has agreed to admit the pt. Discharge - Discharge Plan Condition: Stable Disposition: ADMITTED TO [facility] Referrals: Aletha Borrego MD [Primary Care Provider] - The documentation as recorded by the Nathanael avitia Angela accurately reflects the service I personally performed and the decisions made by me, Gume Macias MD.
[2017-05-29] MEDS: Metoprolol Tartrate TAB* 50 mg PO SCH (08:52)
[2017-05-29] MEDS ORDERED: Aspirin Low Dose CHEW TAB* 81 MG PO SCH (09:00)
[2017-05-29] MEDS ORDERED: amLODIPine TAB* 5 MG PO SCH (09:00)
[2017-05-29] MEDS ORDERED: Multivitamins/Minerals TAB PO SCH (09:00)
[2017-05-29] MEDS ORDERED: Furosemide TAB* 20 MG PO SCH (09:00)
[2017-05-29 11:37] VITALS: BP 113/48
[2017-05-29] MEDS ORDERED: Potassium Chlor TAB* 20 MEQ TAB.ER PO ONE (11:44)
--- NOTE | 2017-05-29 12:28 | PN ---
Subjective Date of Service: 05/29/17 Interval History: Patient seen and examined at bedside. Denies fever, chills, shortness of breath , chest discomfort, N/V/D. Pt states that she had a lot of meeting and was feeling under a lot of stress yesterday from work. Tele: Sinus rhythm, rate 70-80's with PVCs. Family History: Unchanged from Admission Social History: Unchanged from Admission Past Medical History: Unchanged from Admission Objective Active Medications: Acetaminophen (Tylenol Tab*) 650 mg PO Q4H PRN Reason: FEVER/PAIN Al Hydrox/Mg Hydrox/Simethicone (Maalox Plus*) 30 ml PO Q6H PRN Reason: INDIGESTION Amlodipine Besylate (Norvasc Tab*) 2.5 mg PO DAILY [facility] Aspirin (Aspirin Low Dose Tab*) 81 mg PO DAILY [facility] Atorvastatin Calcium (Lipitor*) 80 mg PO BEDTIME [facility] Furosemide (Lasix Tab*) 20 mg PO DAILY [facility] Sodium Chloride (Ns 0.9% 1000 Ml*) 1,000 mls @ 100 mls/hr IV PER RATE [facility] Metoprolol Tartrate (Lopressor Tab*) 100 mg PO BID [facility] Multivitamins/Minerals (Theragran/Minerals Tab*) 1 tab PO DAILY [facility] Ondansetron HCl (Zofran Inj*) 4 mg IV Q4H PRN Reason: NAUSEA/VOMITING Ticagrelor (Brilinta*) 90 mg PO BID [facility] Vital Signs - 8 hr 05/29/17 05/29/17 05/29/17 04:40 07:43 11:37 Temperature 98.0 F 98.2 F Pulse Rate 80 79 72 Respiratory 16 18 Rate Blood Pressure 104/62 119/63 113/48 (mmHg) O2 Sat by Pulse 96 98 Oximetry Oxygen Devices in Use Now: None Appearance: NAD, sitting up in bed Ears/Nose/Mouth/Throat: Mucous Membranes Moist Respiratory: Symmetrical Chest Expansion and Respiratory Effort, Clear to Auscultation Cardiovascular: NL Sounds; No Murmurs; No JVD, RRR Abdominal: NL Sounds; No Tenderness; No Distention Extremities: No Edema Skin: No Rash or Ulcers Neurological: Alert and Oriented x 3, NL Muscle Strength and Tone Lines/Tubes/Other Access: Clean, Dry and Intact Peripheral IV - site benign Nutrition: Taking PO's Result Diagrams: 05/29/17 05:34 05/29/17 05:34 Assess/Plan/Problems-Billing Assessment: Ms. Lorenzo is a 56 yo female with PMH significant for HTN, HLD, and WA who presented to the emergency room for Dr. - Patient Problems (1) Tachycardia Code(s): R00.0 - TACHYCARDIA, UNSPECIFIED SNOMED Code(s): 6288442 Comment: - Converted to sinus rhythm prior to arrival to the floor - ? secondary to hypokalemia - Continue metoprolol (2) Hypokalemia Code(s): E87.6 - HYPOKALEMIA SNOMED Code(s): 31721771 Comment: - Resolved - K+ 3.5, will give another 40 meq KCL now to get K+ to ~ 4 - Suspect secondary to lasix (3) HTN (hypertension) Code(s): I10 - ESSENTIAL (PRIMARY) HYPERTENSION SNOMED Code(s): 35544745 Comment: - SBP mostly 100-110's (suspect elevated SBPs in ED were secondary to poor fitting BP cuff) - Continue amlodipine and metoprolol - Will discontinue lasix, and change to PRN (4) History of coronary artery disease Code(s): Z86.79 - PERSONAL HISTORY OF OTHER DISEASES OF THE CIRCULATORY SYSTEM SNOMED Code(s): 273961218 Comment: - S/P stents - Continue statin, metoprolol, brillinta and ASA (5) HLD (hyperlipidemia) Code(s): E78.5 - HYPERLIPIDEMIA, UNSPECIFIED SNOMED Code(s): 19642312 Comment: - Continue statin (6) DVT prophylaxis Code(s): XDB4568 - SNOMED Code(s): 770090625 (7) Full code status Code(s): Z78.9 - OTHER SPECIFIED HEALTH STATUS SNOMED Code(s): 275064869 Status and Disposition: OBV. Stable for discharge to home today. Attending: Kingsley Phillips
--- NOTE | 2017-05-30 12:28 | DS ---
CC: Dr. Rafal Truong; Dr. Aletha Borrego. * DISCHARGE SUMMARY: DATE OF ADMISSION: 05/28/17. DATE OF DISCHARGE: 05/29/17. ATTENDING PHYSICIAN: Kingsley Phillips MD * (dictated by Mac Villalobos NP). PRIMARY CARE PROVIDER: Dr. Aletha Borrego. PRIMARY DIAGNOSES: 1. Tachycardia, resolved. 2. Palpitations, resolved. 3. Hypokalemia, resolved. SECONDARY DIAGNOSES: 1. History of coronary artery disease. 2. Hypertension. 3. Hyperlipidemia. STUDIES WHILE IN THE HOSPITAL: Chest x-ray on 05/28/17: Radiologist impression : No active cardiopulmonary disease is noted. Transthoracic echocardiogram on 05/28/17. Chief Electrician impression: Mild-to- moderate concentric left ventricular hypertrophy is observed. The left ventricle appears hyperdynamic with no gross wall motion abnormalities identified. Estimated ejection fraction is greater than 65%. The right ventricular global systolic function is low normal. The mitral valve leaflets are mildly thickened with normal excursion. The aortic valve leaflets are mildly thickened with good function. There is trace tricuspid regurgitation. [place] [facility] [place], prior hypokinesis of the anterior and lateral wall no longer noted, EF is increased from 45% to 50%. RV function is stable. Valvular function is stable. DISCHARGE MEDICATIONS: Continued home medications: 1. Atorvastatin 80 mg oral daily at bedtime. 2. Aspirin 81 mg oral daily. 3. Metoprolol tartrate 100 mg oral twice daily. 4. Potassium chloride 10 mEq oral daily. 5. Amlodipine 2.5 mg oral daily. 6. Multivitamin 1 tablet oral daily. 7. Brilinta 60 mg oral twice daily. Changed home medications: Furosemide changed from daily to as needed for leg swelling. HISTORY OF PRESENT ILLNESS/HOSPITAL COURSE: Ms. Lorenzo is a 56-year-old female with a past medical history significant for coronary artery disease, status post 3 cardiac stents, arterial bypass, hypertension, hyperlipidemia, who presented to the emergency room from Dr. Truong's office. She was at Dr. Truong 's office for routine followup when she was noted to be tachycardic with heart rate in the 130s. She had an EKG done showing a sinus tachycardia. The patient was sitting and doing nothing. This was found to be concerning and the patient was sent to the emergency room for further evaluation. While in the emergency room, the patient reported having palpitations since Friday. She felt that that was secondary to her increased stress. She denies any other symptoms. She was found to be hypokalemic in the emergency room with potassium of 2.6. Her other labs were unremarkable. She had a chest x-ray showing no acute findings. A transthoracic echocardiogram without significant findings with an EF improved from 45% to 50% to 65% from prior. Hospitalists were asked to evaluate the patient for admission due to her hypokalemia. While in the hospital, the patient's tachycardia had actually resolved prior to her arrival to the floor. She received gentle IV hydration and potassium replacement. She was noted to be hypotensive in the emergency room, but this did not occur in the floor. I suspect that the hypotension in the emergency room was secondary to an ill-fitting blood pressure cuff. After 100 mEq of potassium chloride, her potassium increased to 3.5, today she received another 40 mEq to get her closer to 4. She remained in sinus tachycardia with heart rate in the 70s to 80s. She was noted to have a few intermittent PVCs and did touch base with Dr. Truong, her time study statistician, who felt that there was an unclear cause. He thought maybe she had stopped taking her metoprolol and was not telling anybody. I did discuss this with the patient and she states making her pill box weekly and is taking her medications daily as directed. She was feeling well and ready for discharge today. Ms. Lorenzo is stable for discharge home today. Vital signs are as follows: Temperature 98.2, heart rate 72, respiratory rate 18, O2 sat 98% on room air, blood pressure 113/48. DISCHARGE PLAN: Ms. Lorenzo will be discharged to home. Activity as tolerated. She will be on a heart healthy diet. With regards to her tachycardia, this is resolved, this is of unclear etiology. I suspect it was secondary to her hypokalemia in addition to possibly an anxiety component. She has been instructed to check her pulse daily and record this and call Dr. Truong's office in 2 weeks to give recordings. Since her blood pressures have been hypotensive to mostly controlled with the exception of a few blood pressures in the emergency room, I have asked her to change her furosemide from daily to as needed for leg swelling. I suspect this is causing her hypokalemia. If she continues to be hypotensive, she could have her amlodipine adjusted. MAC VILLALOBOS, GRIEF COUNSELLOR [id number]/[facility] [place] #: [id number] CORRINE
== END 2017-05-29 14:04 | disposition home or self-care (01) ==
LOC: ED 15:43 → MEDTELE 21:01
PROVIDERS: ADMIT Hospitalist; ATTEND Internal Medicine
DX: R00.0 Tachycardia, unspecified (principal); R00.2 Palpitations; E87.6 Hypokalemia; I10 Essential (primary) hypertension; E78.00 Pure hypercholesterolemia, unspecified; I25.2 Old myocardial infarction; Z95.1 Presence of aortocoronary bypass graft; R51 Headache; E78.5 Hyperlipidemia, unspecified; Z87.891 Personal history of nicotine dependence; Z79.82 Long term (current) use of aspirin
CPT/HCPCS: 36415; 71045; 80048; 80053; 81003; 81015; 82550; 83605; 83735; 83880; 84132; 84443; 84484; 85025; 85379; 85610; 87077; 87086; 87186; 93005; 93306; 99285; A9270-GY; C8929; G0378; J3480

== ENCOUNTER → 2018-09-18 08:37 | Day surgery (SDC) | payer BC ==
--- NOTE | 2018-09-14 13:31 | HP ---
PREOPERATIVE HISTORY AND PHYSICAL: DATE OF SURGERY/ADMISSION: 09/18/18 ATTENDING SURGEON: Rosaura Olea MD.* (DICTATED BY JAVID STALLINGS) PROCEDURE: Right wrist carpal tunnel release. DATE OF OFFICE VISIT/ENCOUNTER: 08/19/18 HISTORY OF PRESENT ILLNESS: This is a 58-year-old female who is reporting symptoms of numbness and tingling and pain that have been ongoing in her right hand for several months. She gets numbness and tingling primarily affecting the middle finger, but also sometimes the index and the thumb. She denies any injury. She has had a nerve conduction study/EMG, which showed evidence of carpal tunnel syndrome on the right. She has tried wearing braces on her wrist at night and also has gone to physical therapy. However, the symptoms have not resolved. She is interested in pursuing surgical intervention at this time. The patient has a cardiac history including a CABG in 2009 and 3 stent placements. She is on Brilinta and we will plan on having her stay on the medication perioperatively and we will receive cardiac clearance from her fish cleaner, Dr. Lira, prior to proceeding with surgery. PAST MEDICAL HISTORY: 1. Hypertension. 2. Hypercholesterolemia. 3. Coronary artery disease. 4. Prediabetes. PAST SURGICAL HISTORY: 1. CABG in 2009. 2. Stent placement x3. 3. Tonsillectomy. 4. x4. 5. Cardiac ablation x2. CURRENT MEDICATIONS: 1. Aspirin 81 mg daily. 2. Atorvastatin calcium 80 mg daily. 3. Brilinta 60 mg 1 tab twice a day. 4. Metoprolol tartrate 100 mg twice a day. 5. Multivitamin daily. 6. Nitrostat 0.4 mg 1 sublingual q.5 minutes, up to 3 doses p.r.n. 7. Spironolactone 25 mg daily. 8. Vascepa 0.5 mg 1 tablet twice a day. ALLERGIES: No known drug allergies. FAMILY MEDICAL HISTORY: Heart disease, diabetes, cancer, hypertension. 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 She is a former smoker; she quit in 2004. Prior to that, she smoked for 40 years a half pack to 2 packs per day. She denies recreational drug use and does not drink alcohol. REVIEW OF SYSTEMS: Negative for general, cephalic, cardiovascular, respiratory , GI, , other musculoskeletal, integumentary, endocrine, neurologic and hematologic symptoms. Infectious Disease: Negative for MRSA, hepatitis C, HIV. PHYSICAL EXAMINATION GENERAL: A well-developed, well-nourished 58-year-old female, in no acute distress. VITAL SIGNS: Height 5 feet 5 inches, weight 215 pounds. Pulse rate 68, blood pressure 138/70. HEENT: Normocephalic, atraumatic. Pupils are equal, round, and reactive to light and accommodation. Extraocular movements are intact. NECK: Supple. No palpable lymph nodes. Throat is clear. PULMONARY: Lungs are clear to auscultation bilaterally. No wheezes, rales, or rhonchi. CARDIOVASCULAR: Regular rate and rhythm. S1 and S2. No murmurs, rubs, or gallops. No edema. ABDOMEN: Positive bowel sounds, soft, and nontender. NEUROLOGIC: Alert and oriented x3. Cranial nerves II through XII are intact. MUSCULOSKELETAL: On exam of the right hand, there is no visible thenar atrophy when compared to the left hand. She has good strength in her thumb bilaterally as well as good strength with abduction of her fingers. She has a negative median nerve compression test at the wrist. Negative Tinel's at the wrist and the elbow. Mildly positive Phalen's test at the right wrist. Sensation is intact to light touch throughout the hand. IMAGING STUDIES: EMG/nerve conduction shows moderate carpal tunnel syndrome on the right. IMPRESSION: Right wrist carpal tunnel syndrome. PLAN: The patient is scheduled to undergo a right wrist carpal tunnel release with Dr. Olea on 09/18/18. She will return to the office 10 days postop for followup and suture removal. A prescription for Ultracet was sent to her pharmacy for postoperative pain management. JAVID STALLINGS [id number]/[facility] #: [id number] MTDD
[~2018-09-18 08:37] MED LIST: Acetaminophen TAB* 325 MG PO PRN; Buffered Lidocaine 1% SYRIN* 1 ML/SYRINGE INTRADERM ONE; Lactated Ringers 1000 ML Bag* 1,000 ML IV SCH; Lidocaine 1% INJ* 10 MG/ML 30 ML SDV ONE; Midazolam* 1 MG/ML 2 ML VIAL (2 MG) ONE; Naloxone* 0.4 MG/ML 1 ML VIAL IV PRN; Ondansetron INJ* 2 MG/ML VIAL IV PRN; Propofol* 10 MG/ML 20 ML BTL ONE; fentaNYL* 50 MCG/ML 2 ML VIAL (100 MCG VIAL) IV PRN; fentaNYL* 50 MCG/ML 2 ML VIAL (100 MCG VIAL) ONE
[2018-09-18 10:24] VITALS: BP 147/97
--- NOTE | 2018-09-18 14:48 | OP ---
DATE OF OPERATION: 09/18/18 - SDS DATE OF : 64 SURGEON: Rsoaura Olea MD SAS ADMINISTRATOR: JAVID Song ANESTHESIA: Local MAC. PRE-OP DIAGNOSIS: Right carpal tunnel syndrome. POST-OP DIAGNOSIS: Right carpal tunnel syndrome. OPERATIVE PROCEDURE: Right carpal tunnel release. ESTIMATED BLOOD LOSS: Zero. TOURNIQUET TIME: 10 minutes. INDICATIONS FOR PROCEDURE: Melba is a 58-year-old female with numbness and tingling in the median nerve distribution of her right hand. She presents for right carpal tunnel release. DESCRIPTION OF PROCEDURE: The patient was brought to the operating room, was given a sedation anesthetic and a local infiltration of 10 cc of 1% plain lidocaine in the palm of her right hand. The skin of her right hand and forearm was prepped and draped in the usual sterile fashion. The hand and forearm were exsanguinated and the tourniquet elevated to 250 mmHg. A longitudinal incision was made in the palm in line with the ring finger. We dissected through the subcutaneous tissue down to the transverse carpal ligament. The ligament was divided sharply with a knife and then more proximally with the scissors. The nerve was dissected free from the surrounding tissue and there was an area of moderate compression at the mid portion of the ligament. The wound was irrigated and the skin edges were reapproximated with 4-0 nylon suture. The wound was dressed with Xeroform, 4x4 , Webril, and an Estrada wrap. The patient tolerated the procedure well and was brought to the recovery room in good condition. [id number]/[facility] #: [id number] [facility]
== END | disposition home or self-care (01) ==
LOC: OR 08:37
PROVIDERS: ATTEND Orthopaedic Surgery
DX: G56.01 Carpal tunnel syndrome, right upper limb (principal); I10 Essential (primary) hypertension; E78.00 Pure hypercholesterolemia, unspecified; I25.10 Atherosclerotic heart disease of native coronary artery without angina pectoris; R73.03 Prediabetes; Z95.1 Presence of aortocoronary bypass graft; Z95.5 Presence of coronary angioplasty implant and graft
CPT/HCPCS: J2250; J2704; J3010